=== PATIENT | male | born 1955 | race Caucasian/White ===

== ENCOUNTER 2023-10-30 08:35 | Outpatient (REF) | payer OTHER, SELFPAY ==
[2023-10-30 11:58] LABS: Anion Gap 11 (12-20); Blood Urea Nitrogen 20 mg/dL (9-16); Calcium 9.5 mg/dL (8.4-10.2); Carbon Dioxide 26 mmol/L (22-29); Chloride 103 mmol/L (96-108); Estimated Glomerular Filt Rate > 60; Glucose Random 114 mg/dL (60-115); Potassium 4.3 mmol/L (3.3-5.1); Sodium 136 mmol/L (135-145)
[2023-10-30 12:07] LABS: Cholesterol 207 mg/dL (<200); HDL Cholesterol 48 mg/dL (>40); LDL Cholesterol Calculated 133 mg/dL (<100); Triglycerides 131 mg/dL (<150)
[2023-10-30 12:16] LABS: TSH reflex Free T4 1.38 uIU/mL (0.32-4.0)
== END 2023-10-30 08:36 | disposition home or self-care (01) ==
LOC: HO.HHCL 08:35
PROVIDERS: Visit Provider Internal Medicine
DX: I12.9 Hypertensive chronic kidney disease with stage 1 through stage 4 chronic kidney disease, or unspecified chronic kidney disease (principal); E11.22 Type 2 diabetes mellitus with diabetic chronic kidney disease; N18.30 Chronic kidney disease, stage 3 unspecified; E78.5 Hyperlipidemia, unspecified
CPT/HCPCS: 36415; 80048; 80061; 84443

== ENCOUNTER 2024-02-11 08:53 | Outpatient (REF) | payer OTHER, SELFPAY ==
[2024-02-11 12:02] LABS: Alanine Aminotransferase 17 U/L (0-40); Albumin Level 4.1 g/dL (3.5-5.0); Alkaline Phosphatase 80 U/L (39-117); Aspartate Amino Transferase 21 U/L (5-37); Bilirubin Direct 0.3 mg/dL (0.0-0.5); Cholesterol 130 mg/dL (<200); HDL Cholesterol 42 mg/dL (>40); LDL Cholesterol Calculated 69 mg/dL (<100); Total Protein 7.4 g/dL (6.5-8.0); Triglycerides 95 mg/dL (<150); Vitamin D 25-OH Total 51.3 ng/mL (>30)
[2024-02-11 12:34] LABS: Reflex LDLD? No
== END 2024-02-11 08:54 | disposition home or self-care (01) ==
LOC: HO.HHCL 08:53
PROVIDERS: Visit Provider Internal Medicine
DX: E11.22 Type 2 diabetes mellitus with diabetic chronic kidney disease (principal); N18.30 Chronic kidney disease, stage 3 unspecified; E55.9 Vitamin D deficiency, unspecified
CPT/HCPCS: 36415; 80061; 80076; 82306

== ENCOUNTER 2025-03-18 08:06 | Outpatient (REF) | payer OTHER, SELFPAY ==
--- OUTSIDE RECORDS SUMMARY | 2025-03-18 08:16 | XMS_ITS | Encounter Summary ---
Author Organization [employer] Address [address] [facility] [address] [place] [address] Care Team Providers Care Fixed Income Portfolio Manager Name Role Phone Tracy Costello MD Primary Care Provider + Encounter Details Date Type Department Care Team (Late Contact Info) Description 12/05/2022 Orders Only [facility] MED & PEDS [address] [place], [place] [phone] Pallavi Padgett LPN Social History Tobacco Use Types Packs/Day Years Used Date Smoking Tobacco: Never Smokeless Tobacco: Never Alcohol Use Standard Drinks/Week Comments Never 0 (1 standard drink = 0.6 oz pur e alcohol) Depression Answer Date Recorded Patient Health Questionnaire-2 Score 0 11/21/2022 Sex and Gender Information Value Date Recorded Sex Assigned at Male 10/01/2022 10:31 AM EDT Legal Sex Male 10:31 AM EDT Gender Identity Male 10/01/2022 10:31 AM EDT Sexual Orientation Choose not to disclose 2021 10:31 AM EDT COVID-19 Exposure Response Date Recorded In the last 10 days, have yo u been in contact with someone who was confirmed or suspected to have Coronavirus/COVID-19? No / Unsure 11/21/2022 11:15 AM EST documented as of this encounter Plan of Treatment Upcoming Encounters Date Type Department Care Team (Late st Contact Info) Description 04/13/2025 2:30 PM EDT Medication Management [facility] MEDICINE [address] [place] [address] documented as of this encounter Visit Diagnoses Not on filedocumented in this encounter Care Teams Fixed Income Portfolio Manager Relationship Specialty Start Date End Date Tracy Costello MD [address] [place] [id number] PCP - General Family Medicine 12/02/18 documented as of this encounter
--- OUTSIDE RECORDS SUMMARY | 2025-03-18 08:17 | XMS_ITS | Encounter Summary ---
Author Organization [facility] Address [address] [place] [address] 7[address] [place] [address] Care Team Providers Care Moving Picture Operator Name Role Phone Tracy Costello MD Primary Care Provider + Encounter Details Date Type Department Care Team (Latest Contact Info) Description 07/24/2019 Abstract [facility] CONVERSIONS Dental, Provider, DDS Social History Tobacco Use Types Packs/Day Years Used Date Smoking Tobacco: Never Assessed Sex and Gender Information Value Date Recorded Sex Assigned at Male 10/01/2022 10:31 AM EDT Legal Sex Male 10:31 AM EDT Gender Identity Male 10/01/2022 10:31 AM EDT Sexual Orientation Choose not to disclose 2021 10:31 AM EDT documented as of this encounter Plan of Treatment Upcoming Encounters Date Type Department Care Team (Late st Contact Info) Description 04/13/2025 2:30 PM EDT Medication Management [facility] MEDICINE [address] [place] [address] documented as of this encounter Visit Diagnoses Not on filedocumented in this encounter Care Teams Moving Picture Operator Relationship Specialty Start Date End Date Tracy Costello MD [address] [place] [address] PCP - General Family Medicine 12/02/18 documented as of this encounter
--- OUTSIDE RECORDS SUMMARY | 2025-03-18 08:17 | XMS_ITS | Encounter Summary ---
Author Organization [employer] Address [address] [facility] 7t [place] [address] Care Team Providers Care Tow Picker Name Role Phone Tracy Costello MD Primary Care Provider + Reason for Visit * Reason Onset Date Comments Med Refill 11/28/2023 Encounter Details Date Type Department Care Team ([facility] st Contact Info) Description 11/28/2023 Telephone [facility] MEDICINE [address] [place], [place] [phone] Tracy Costello MD [address] [place], [place] [phone] Med Refill Social History Tobacco Use Types Packs/Day Years Used Date Smoking Tobacco: Never Smokeless Tobacco: Never Alcohol Use Standard Drinks/Week Comments Never 0 (1 standard drink = 0.6 oz pur e alcohol) Housing Stability Answer Date Recorded What is your housing situation today? I have mary pettit 09/20/[address] you li ve. Do you have problems with any of the following? None of the above 09/20/2023 Food Insecurity Answer Date Recorded Within the past 12 months, y ou worried that your food would run out before you got money to buy more: Never True 09/20/2023 Within the past 12 months,th e food you bought just didn't last and you didn't have enough money to get more: Never True Transportation Answer Date Recorded In the past 12 months, has l ack of transportation kept you from medical appts, meetings, work or from getting things needed for daily living? No 09/20/2023 Utilities Answer Date Recorded In the past 12 months, has t he electric, gas, oil or water company threatened to shut off services in your home? No 09/20/2023 Depression Answer Date Recorded Patient Health Questionnaire-2 Score 0 11/21/2022 Sex and Gender Information Value Date Recorded Sex Assigned at Male 10/01/2022 10:31 AM EDT Legal Sex Male 10:31 AM EDT Gender Identity Male 10/01/2022 10:31 AM EDT Sexual Orientation Choose not to disclose 2021 10:31 AM EDT documented as of this encounter Miscellaneous Notes * Telephone Encounter - Pallavi Padgett LPN - 11/28/2023 2:00 PM EST Medication was discontinued on 10/11/23 due to side effects. * Telephone Encounter - Trisha Pagan - 11/28/2023 1:41 PM EST TC from pt requesting medication refill. Medications needing refill : Metformin 1,000 mg Tablet To be sent to: [facility] - [place], [place] - [address] [place] [address] documented in this encounter Plan of Treatment Upcoming Encounters Date Type Department Care Team ([facility] st Contact Info) Description 04/13/2025 2:30 PM EDT Medication Management [facility] MEDICINE [address] [place] [address] documented as of this encounter Goals Goal Patient Goal Type Associated Problems Recent Progress Patient-Stated? Author Blood Pressure < 140/90 Blood Pressure 122/72(2024 2:45 PM EDT) No Alix Yeh Patient will adhere to medication regimen General No Alix Yeh Hemoglobin A1c < 7 Result Component 7(01/29/2025 11:39 AM EST) No Alix Yeh documented as of this encounter Visit Diagnoses Not on filedocumented in this encounter Care Teams Tow Picker Relationship Specialty Start Date End Date Tracy Costello MD [address] [place] [address] PCP - General Family Medicine 12/02/18 documented as of this encounter
--- OUTSIDE RECORDS SUMMARY | 2025-03-18 08:17 | XMS_ITS | Clinical Summary ---
Author Organization [facility] Address [address] [place] [address] Care Team Providers Care Billing Adjudicator Name Role Phone Unavailable Primary Care Provider Unavailabl e Social History Tobacco Use Types Packs/Day Years Used Date Smoking Tobacco: Never Smokeless Tobacco: Never Alcohol Use Standard Drinks/Week Comments Never 0 (1 standard drink = 0.6 oz pur e alcohol) Sex and Gender Information Value Date Recorded Sex Assigned at Not on file Legal Sex Male 9:10 AM EST Gender Identity Not on file Sexual Orientation Not on file Obstetrics History Last Filed Vital Signs Vital Sign Reading Time Taken Comments Blood Pressure - - Pulse - - Temperature - - Respiratory Rate - - Oxygen Saturation - - Inhaled Oxygen Concentration - - Weight 67.1 kg (148 lb) 04/11/2022 10:21 AM EDT Height 160 cm (5' 3 ) 04/11/2022 10:21 AM EDT Body Mass Index 26.22 04/11/2022 10:21 AM EDT Plan of Treatment Health Maintenance Due Date Last Done Comments DTaP,Tdap,and Td Vaccines (1 - Tdap) 1974 Pneumococcal Vaccine: 50+ Ye ars (1 of 1 - PCV) 2005 Zoster Vaccines (1 of 2) 2005 Abdominal Aortic Aneurysm (A AA) Screen 11/04/2022 Cholesterol Screening (Lipid Panel) 11/04/2022 Colorectal Cancer Screening: Colonoscopy 11/04/2022 Depression Screening 11/04/2022 Falls Risk Assessment 11/04/2022 Hepatitis C Screening 11/04/2022 Social Influencers of Health Screening 11/04/2022 COVID-19 Vaccine (2023-2 5 season) 2024 Influenza Vaccine (Season Ended) 2025 RSV Immunization Adult Patie nts (1 - 1-dose 75+ series) 2030 HIB Vaccines Aged Out No longer eligi ble based on patient's age to complete this topic HPV Vaccines Aged Out No longer eligi ble based on patient's age to complete this topic Hepatitis A Vaccines Aged Out No long er eligible based on patient's age to complete this topic Hepatitis B Vaccines Aged Out No long er eligible based on patient's age to complete this topic IPV Vaccines Aged Out No longer eligi ble based on patient's age to complete this topic MMR Vaccines Aged Out No longer eligi ble based on patient's age to complete this topic Meningococcal ACWY Vaccine Aged Out N o longer eligible based on patient's age to complete this topic Meningococcal B Vaccine Aged Out No l onger eligible based on patient's age to complete this topic RSV Immunization Patients Un timi 20 months Aged Out No longer eligible b ased on patient's age to complete this topic Varicella Vaccines Aged Out No longer eligible based on patient's age to complete this topic Advance Directives Documents on File Type Date Recorded Patient Mailing Manager Expl anation Health Care Decision (hx) 05/20/2018 ALYSON PETER DIRECTIVE
--- OUTSIDE RECORDS SUMMARY | 2025-03-18 08:17 | XMS_ITS | Clinical Summary ---
Author Organization [facility] Address [address] [place] [address] Care Team Providers Care Technical Applications Scientist Name Role Phone Unavailable Primary Care Provider Unavailabl e Source Comments PLEASE NOTE, if this patient is a minor, it may be UNLAWFUL to discuss sensitive information that is contained in these records (such as FAMILY PLANNING, MENTAL HEALTH or SUBSTANCE ABUSE) with the minor patient's parent or other person without the patient's specific authorization.[facility] Immunizations Immunization Administration Dates Next Due Moderna COVID-19 Vaccine, re d cap blue label, 12+ Primary Series 03/27/2021,02/14/2021 Social History Tobacco Use Types Packs/Day Years Used Date Smoking Tobacco: Never Assessed Social Connections Answer Date Recorded Social Connections and Isolation 0 02/14/2021 Financial Resource Strain Answer Date R ecorded Financial Resource Strain 0 2020 Stress Answer Date Recorded Stress 0 02/14/2021 Physical Activity Answer Date Recorded Physical Activity 0 02/14/2021 Food Insecurity Answer Date Recorded Food 0 02/14/2021 Transportation Needs Answer Date Record ed Transportation 0 02/14/2021 Housing Stability Answer Date Recorded Housing 0 02/14/2021 Safety and Environment Answer Date Jean rded Safety 0 02/14/2021 Utilities Answer Date Recorded Utilities 0 02/14/2021 Employment Answer Date Recorded Employment 0 02/14/2021 Sex and Gender Information Value Date Recorded Sex Assigned at Not on file Legal Sex Male 7:25 AM PST Gender Identity Not on file Sexual Orientation Not on file Plan of Treatment Health Maintenance Due Date Last Done Comments Diabetes Screening 1955 Hepatitis C Screening 1955 Lipid Screening 1955 Tobacco Screening 1955 Hypertension Screening (#1) 1973 Medicare Annual Wellness Visit 1973 CT Colonography 2000 Colonoscopy 2000 Colorectal Cancer Screening 2000 FIT/gFOBT 2000 Fecal DNA 2000 Flexible Sigmoidoscopy 2000 Imm-Pneumococcal 65+ (1 of 1 - PCV) 2005 Imm-Zoster, Recombinant (1 of 2) 2005 Imm-DTaP/Tdap/Td (1 - Tdap) 04/27/2017 04/26/2017 Abdominal Aortic Aneurysm Screening 2020 Falls Prevention 2020 [id number] ( season) 2024 021, 02/14/2021 Imm-Influenza (#1) 2024 Alcohol and Drug Screen 12/02/2024 Depression Annual Screen 12/02/2024 [place]
--- OUTSIDE RECORDS SUMMARY | 2025-03-18 08:17 | XMS_ITS | Encounter Summary ---
Author Organization [employer] Address [address] [place] [address] [place] [address] Care Team Providers Care Cork Wirer Name Role Phone Tracy Costello MD Primary Care Provider + Reason for Visit * Reason Onset Date Comments DM medications 03/09/2025 Encounter Details Date Type Department Care Team ([facility] st Contact Info) Description 03/09/2025 Telephone [facility] MEDICINE [address] [place], [place] [phone] Lolly Denise, PharmD [address] [place] [address] DM medications Social History Tobacco Use Types Packs/Day Years Used Date Smoking Tobacco: Never Smokeless Tobacco: Never Alcohol Use Standard Drinks/Week Comments Never 0 (1 standard drink = 0.6 oz pur e alcohol) Depression Answer Date Recorded Patient Health Questionnaire-9 Score 2 01/29/2025 Patient Health Questionnaire-9 Score 2 01/29/2025 Last PHQ-9: Questionnaire Data Not on file 0 01/29/2025 Housing Stability Answer Date Recorded What is your housing situation today? I have mary pettit 12/20/[address] you li ve. Do you have problems with any of the following? None of the above 12/20/2023 Food Insecurity Answer Date Recorded Within the past 12 months, y ou worried that your food would run out before you got money to buy more: Never True 12/20/2023 Within the past 12 months,th e food you bought just didn't last and you didn't have enough money to get more: Never True Transportation Answer Date Recorded In the past 12 months, has l ack of transportation kept you from medical appts, meetings, work or from getting things needed for daily living? No 12/20/2023 Utilities Answer Date Recorded In the past 12 months, has t he electric, gas, oil or water company threatened to shut off services in your home? No 12/20/2023 Depression Answer Date Recorded Patient Health Questionnaire-2 Score 2 01/29/2025 Sex and Gender Information Value Date Recorded Sex Assigned at Male 10/01/2022 10:31 AM EDT Legal Sex Male 10:31 AM EDT Gender Identity Male 10/01/2022 10:31 AM EDT Sexual Orientation Choose not to disclose 2021 10:31 AM EDT documented as of this encounter Miscellaneous Notes * Telephone Encounter - Livier cMdonnell RN - 03/10/2025 9:15 AM EDT Noted. RN reviewed chart and per TIM Curry note on 03/03/25: TC placed to patient daughter (Emanuel) [phone] regarding below message. RN informed daughter that patient discontinued his med box on 01/15/25 per pharmacy. Daughter reported pt is legally blind and needs the med box. RN informed daughter a new med box needs referral if pt agreeable. RN spoke to patient that reported he wants to use the med box again. Daughter also reported pt Jardiance was discontinued per pharmacy. TC placed to Pharmacy , RN was notified about the combination drug Glyambi has a co-pay $157. Pharmacy reported they will fill the Jardiance RX and patient is able to pick the medication up in 1 hour. RN informed patient daughter she can pear picker Jardiance and Tradjenta today at the pharmacy. Daughter to F/U PRN RN called [facility] pharmacy and was informed Jardiance and Tradjenta medications have been filled since 03/03/25 awaiting p/u. RN was informed the patient is scheduled to start medboxes on Saturday however they are able to give a couple of pills in a bottle to hold patient over to Saturday. RN called patients daughter Emanuel to remind to p/u medications. Daughter reports she did p/u the medications yesterday. Daughter reports she was at [facility] pharmacy yesterday with Mari who provided daughter with a couple of days of medication in bottles until medboxes start on Saturday. Daughter reports she is not sure what's going on with the [place] pharmacy. I'm getting frustrated. It's like they don't know what they are doing. If I find another pharmacy that does blister packs, I will be switching over . RN apologized to daughter and advised RN would call [facility] pharmacy and explain what she told me to see if RN can clarify. RN confirmed with daughter the patient does indeed have Jardiance and Tradjenta at home. RN returned call to [facility] pharmacy to inform of above information from daughter. Pharmacy apologizes as there was no note written stating the patient received a short supply of medications in bottles until medboxes on Saturday. Pharmacy was able to count the remaining pills and determined the patient was given a 4 day supply of his medications yesterday and medboxes will be initiated on Saturday. Sending to [place] as FYI. documented in this encounter Plan of Treatment Upcoming Encounters Date Type Department Care Team (Late st Contact Info) Description 04/13/2025 2:30 PM EDT Medication Management [facility] MEDICINE [address] [place] [address] documented as of this encounter Goals Goal Patient Goal Type Associated Problems Recent Progress Patient-Stated? Author Blood Pressure < 140/90 Blood Pressure 122/72(2024 2:45 PM EDT) No Ailx Yeh Patient will adhere to medication regimen General No Alix Yeh Hemoglobin A1c < 7 Result Component 7(01/29/2025 11:39 AM EST) No Alix Yeh documented as of this encounter Visit Diagnoses Not on filedocumented in this encounter Additional Health Concerns Assessment Noted Time PHQ-9 Depression Total Score: 2 01/29/20 25 11:29 AM EST documented as of this encounter Care Teams Cork Wirer Relationship Specialty Start Date End Date Tracy Costello MD [address] [place] [address] PCP - General Family Medicine 12/02/18 documented as of this encounter
--- OUTSIDE RECORDS SUMMARY | 2025-03-18 08:17 | XMS_ITS | Clinical Summary ---
Author Organization [employer] Address [address] [facility] [address] [place] [address] Care Team Providers Care Civil Structural Engineer Name Role Phone Tracy Costello MD Primary Care Provider + Allergies Active Allergy Reactions Criticality Noted Date Comments Dog Epithelium (Canis Lupus Familiaris) Itching 07/26/2020 Gramineae Pollens 01/15/2023 Penicillins Hives 03/05/2017 Medications Blood Pressure Monitor kitIndications:El evated blood pressure reading 1 each 2 (two) times a week. Dx elevated blood pressure reading 1 kit 022 Active albuterol (2.5 MG/3ML) 0.083% nebulizer solution INHALE 3ML BY NEBULIZATION ROUTE THREE TIMES EVERY DAY 75 mL 1 023 Active Combigan 0.2-0.5 % ophthalmic solution APPLY 1 DROP IN EACH EYE TWICE DAILY 023 Active latanoprost (Xalatan) 0.005 % ophthalmic solution PLACE 1 DROP IN EACH EYE EVERY NIGHT 023 Active Blood Glucose Monitoring Suppl (Blood Glucose Monitor System) w/Device kit Check blood sugar three times daily as directed 1 kit 023 Active albuterol 108 (90 Base) MCG/ACT inhaler Inhale 2 puffs every 6 (six) hours if needed for wheezing or shortness of breath. 18 g 5 024 Active Alcohol Swabs (Alcohol Prep) 70 % pads USE THREE TIMES DAILY DIRECTED 100 each 3 024 Active glucose blood (OneTouch Verio) test strip USE TO TEST BLOOD SUGAR THREE TIMES DAILY DIRECTED 100 strip 3 04/02/2 024 Active Lancets (OneTouch Delica Plus [id number]) [facility] USE TO TEST BLOOD SUGAR THREE TIMES DAILY DIRECTED 100 each Active empagliflozin (Jardiance) 25 MGIndications:Typ e 2 diabetes mellitus with hyperglycemia, without long-term current use of insulin ([facility]) Take 1 tablet (25 mg) by mouth Once per day. 30 tablet 11 024 2024 Active fluticasone (Flonase) 50 MCG/ACT nasal spray USE 1-2 SPRAYS IN EACH NOSTRIL IN THE MORNING SHAKE GENTLY 16 g 2 Active fluticasone furoate (Arnuity Ellipta) 100 MCG/ACT inhaler INHALE 1 PUFF BY MOUTH EVERY MORNING, RINSE MOUTH AFTER USING. 30 each 024 2024 Active cholecalciferol VITAMIN D (Vitamin D-3) 50 MCG (2000 UT) tabletIndications :Degeneration of lumbar intervertebral disc TAKE 1 TABLET BY MOUTH EVERY MORNING 90 tablet 3 024 Active folic acid (Folvite) 1 MG tabletIndications :Vitamin D deficiency TAKE 1 TABLET BY MOUTH EVERY MORNING 90 tablet 3 024 Active tamsulosin (Flomax) 0.4 MG 24 hr capsule TAKE 1 CAPSULE BY MOUTH EVERY MORNING (for prostate) 90 capsule 1 Active atorvastatin (Lipitor) 40 MG tabletIndications :Hyperlipidemia, unspecified hyperlipidemia type TAKE 1 TABLET BY MOUTH AT BEDTIME cholesterol 30 tablet 11 Active lisinopril 10 MG tabletIndications :Primary hypertension TAKE 1 TABLET BY MOUTH EVERY MORNING BLOOD PRESSURE 30 tablet 11 024 Active aspirin (Aspirin Low Dose) 81 MG chewable tabletIndications :Type 2 diabetes mellitus with stage 3 chronic kidney disease, without long-term current use of insulin, unspecified whether stage 3a or 3b CKD ([facility]) CHEW 1 TABLET BY MOUTH EVERY MORNING (FOR THE HEART) 90 tablet 3 Active empagliflozin-liam agliptin (Glyxambi) 25-5 MG Take 1 tablet by mouth Once per day. 30 tablet 11 025 2025 Active polyethylene glycol, PEG, 3350 (MiraLax) 17 GM/SCOOP powder Take 17 g by mouth Once per day. 527 g 2 025 2024 Active linaGLIPtin (Tradjenta) 5 MG tabletIndications :Type 2 diabetes mellitus with stage 3 chronic kidney disease, without long-term current use of insulin, unspecified whether stage 3a or 3b CKD (CMS/HCC) Take 1 tablet (5 mg) by mouth Once per day. 90 tablet 3 025 2025 Active docusate sodium (Colace) 100 MG capsule Take 1 capsule by mouth if needed each day for constipation. Active omeprazole (PriLOSEC) [address] capsule Take 1 capsule by mouth before breakfast. Do not crush or chew. Active ketorolac (Acular) 0.5 % ophthalmic solution Administer 1 drop into the right eye 4 times daily. Active Tradjenta 5 MG tabletIndications :Type 2 diabetes mellitus with stage 3 chronic kidney disease, without long-term current use of insulin, unspecified whether stage 3a or 3b CKD (CMS/HCC) TAKE 1 TABLET BY MOUTH EVERY MORNING (for diabetes) 30 tablet 025 2024 Discontinued(R eorder (will not trigger notification to Pharmacy)) Active Problems Problem Noted Date Diagnosed Date Slow transit constipation 11/27/2024 Assessment & Plan (01/29/2025 1:58 PM EST): Start Miralax FU with GI for colonoscopy. Assessment & Plan (11/27/2024 1:23 PM EST): Resolved with Colace. Continue Colace, information regarding GI referral for colonoscopy given to pt. H/O balanitis 11/27/2024 Dysuria 11/27/2024 Assessment & Plan (11/27/2024 1:25 PM EST): Advised to come to walk in clinic PRN symptoms and bring med boxes, it may be related to Jardiance or vs. Mariana balanitis. Acute exacerbation of chronic low back pain 08/03 Assessment & Plan (08/26/2024 9:49 AM EDT): - status post fall a few months ago (see previous note) - will order a PT referral again due to residual pain Primary open angle glaucoma (POAG) of both eyes 08/26/2024 Assessment & Plan (08/26/2024 1:49 PM EDT): Seen by Ophthalmology, previously by Dr Ndiaye, lost for fu. We'll obtain OV notes from most recent ophthalmology visit, routine optometry evaluation on 04/09 appreciated. Advised to be compliant with eye drops, caution with accidents due to decreased vision. Fall at home 05/26/2024 Assessment & Plan (05/26/2024 9:30 AM EDT): - no head trauma - refer to PT for lower back pain - prescribe anti-slip mat for the bathroom - pt has a shower chair and grab bars in the shower Encounter for colorectal cancer screening 2022 Assessment & Plan (05/26/2024 9:29 AM EDT): - refer for colonoscopy Vitamin D deficiency 10/11/2023 Assessment & Plan (05/26/2024 9:29 AM EDT): - Vitamin D is at goal - continue low dose Vitamin D daily Assessment & Plan (12/20/2023 2:38 PM EST): On vit D daily. Check Levels prior to next appt. Assessment & Plan (10/11/2023 11:45 AM EST): Noncompliant with Vit-D supplementation Restart Vit-D supplementation daily and recheck levels in 3 months Pt decline Flu IZ Encounter for screening colonoscopy 04/16/2023 Allergic sinusitis 04/16/2023 Overview (04/16/2023): Continue Claritin and will add Flonase Assessment & Plan (04/16/2023 2:27 PM EDT): Continue Claritin and will add Flonase Asthma in adult 04/16/2023 Overview (04/16/2023): Add Flovent. -Continue albuterol prn -No indication for prednisone. Assessment & Plan (04/16/2023 2:26 PM EDT): Add Flovent. -Continue albuterol prn -No indication for prednisone. High serum amylase 01/06/2023 Assessment & Plan (01/06/2023 10:38 PM EST): ED visit on 10/24/22 reviewed. Patient denies ETOH use at that time. Repeat Amylase and lipase and fu at next appt. Will DC Tradjenta if elevated,patient aware to get BW done PETROS. Counseled to avoid ETOH use Primary hypertension 12/25/2022 Assessment & Plan (11/27/2024 1:22 PM EST): Controlled. Compliant w/meds. Continue lisinopril same dose. Counseled re low salt diet/increase moderate physical activity. Check home BP BIW and prn CP/GUERRA/GABRIEL. Non smoking patient. FU with me in 6 months. Assessment & Plan (12/20/2023 2:34 PM EST): Better controlled, continue lisinopril 10 mg in med boxes. Counseled re low salt diet/increase moderate physical activity. Check home BP BIW and prn CP/GUERRA/GABRIEL Non smoking patient. Assessment & Plan (10/11/2023 11:44 AM EST): Uncontrolled, increase lisinopril to 10mg /daily Counseled re low salt diet/increase moderate physical activity. Check home BP BIW and prn CP/GUERRA/GABRIEL Non smoking patient. Assessment & Plan (04/16/2023 2:25 PM EDT): At goal with cristiano ryan. Assessment & Plan (12/25/2022 2:05 PM EST): New Onset. Start lisinopril 5mg and FU with me in 3-4 weeks with labs Counseled re low salt diet/increase moderate physical activity. Check home BP BIW and prn CP/GUERRA/GABRIEL Non smoking patient. Cervical radiculopathy 11/21/2022 Erectile dysfunction due to arterial insufficien cy 11/21/2022 Hyperlipidemia associated wi th type 2 diabetes mellitus ([facility]/HCC) 11/21/2022 Assessment & Plan (01/29/2025 1:56 PM EST): Check Lipid profile Continue Atorvastatin 40 mg FU on next appointment Assessment & Plan (05/26/2024 9:26 AM EDT): - LDL is at goal, continue Atorvastatin - recommended moderate amount of exercise and increase consumption of fruit, vegetables, fish and high fiber foods. Should decrease consumption of highly saturated fats or trans fats Assessment & Plan (10/11/2023 11:42 AM EST): Uncontrolled, Pt not taking Atorvastatin Reminded him to take Atorvastatin daily, he agreed to start med boxes FU lipids in 3 months Degeneration of lumbar intervertebral disc 10/30 Assessment & Plan (11/27/2024 1:26 PM EST): Partially improved, S/P PT. Advised to come to acupuncture clinic. Take Tylenol PRN. Assessment & Plan (08/26/2024 1:43 PM EDT): Exacerbated after recent fall, patient has declined epidural inj recently Refer to PT again, patient advised that appt should be made within 30d of referral, so if they don't receive anything in the mail by the end of next week or via [employer], they should come to inquire about referral. I explained that it is most likely a PT provider requirement as most muscle skeletal conditions tend to improve with time and may need re evaluation after 30d. Patient understood and will keep an eye on the referral. Assessment & Plan (05/26/2024 9:18 AM EDT): - lower back pain worsened after recent fall at home - continue Tylenol PRN - refer to PT Assessment & Plan (10/11/2023 11:40 AM EST): Controlled, Pt has spinal stenosis Take Tylenol and Tizanidine PRN Spinal stenosis of lumbar region 04/08/2019 Assessment & Plan (01/06/2023 7:49 PM EST): Currently with no s/s claudication. Recommend to continue gentle exercise as tolerated. Continue gabapentin bid, caution with driving or performing activities that require vigilance. FU pain clinic prn. Protrusion of lumbar intervertebral disc 019 Abnormal gait 03/12/2019 Chronic thoracic back pain 03/12/2019 Long toenail 01/12/2019 Assessment & Plan (01/29/2025 1:59 PM EST): Refer to Podiatry Assessment & Plan (08/26/2024 9:49 AM EDT): - will refer pt to podiatry again for toenail trimming Assessment & Plan (12/20/2023 2:35 PM EST): Refer to podiatry for toenail trimming Injury of musculoskeletal system 01/28/2018 Cyst of epididymis 09/13/2017 Hydrocele in adult 09/13/2017 Lesion of soft tissue of lower leg and ankle 09/2017 Benign prostatic hyperplasia with lower urinary tract symptoms 07/23/2017 Assessment & Plan (10/11/2023 11:40 AM EST): Pt is asymptomatic at this time, continue Flomax daily He will reschedule appointment with Pure hypercholesterolemia 04/16/2017 Assessment & Plan (12/20/2023 2:39 PM EST): On atorvastatin, check lipids and LFts prior to next appt. Mild intermittent asthma 03/05/2017 Type 2 diabetes mellitus wit h stage 3 chronic kidney disease, without long-term current use of insulin, unspecified whether stage 3a or 3b CKD 03/05/2017 Assessment & Plan (01/29/2025 1:55 PM EST): Controlled. No change on medications. I will prescribe Glyxambi 25-5 (combo) to improve medication compliance and minimize the number of pills. Counseled re more frequent low calorie/carb meals. Check fgstk twice daily Encouraged physical activity as tolerated. Ophthalmology evaluation UTD, he has DM retinopathy. Refer to marking machine operator for toenail treatment. He declined COVID and Influenza immunizations today. Order labs prior to next appointment. FU in 3 months. Assessment & Plan (11/27/2024 1:19 PM EST): Controlled. A1c is at goal. Continue on Tradjenta 5 mg and Jardiance 25 mg Counseled re more frequent low calorie/carb meals. Check fgstk up to twice daily Encouraged physical activity as tolerated. FU in 3 months We will FU on potential side effects of Jardiance. He declined Covid and Influenza immunizations today. Assessment & Plan (08/26/2024 10:10 AM EDT): Controlled. A1c is at goal. Continue on Tradjenta 5 mg and Jardiance 25 mg Counseled re more frequent low calorie/carb meals. Check fgstk up to twice daily Encouraged physical activity as tolerated. FU in 3 months Pt declined influenza and PCV IZ today. Advised to have them both and Covid vacccine at the nearest pharmay Assessment & Plan (05/26/2024 9:28 AM EDT): - A1c is improving, fairly good - Increase Jaurdiace to 25 mg and continue Tradjenta 5 mg - Counseled re more frequent low calorie/carb meals. - Check fgstk once daily - Encouraged physical activity as tolerated. - FU in 3 months. Assessment & Plan (12/20/2023 2:44 PM EST): It seems to be better controlled since started on med boxes. Continue Tradjenta only (Actos is being held due to non compliance) and fu in 2m. Counseled re more frequent low calorie/carb meals. Check fgstk 2x daily Encouraged physical activity as tolerated. Add ASA 81mg/d for CV protection. Declined Influenza and Covid vax. Assessment & Plan (10/11/2023 11:43 AM EST): Better controlled, A1c not at goal DC metformin due to intolerance and counseled him to take Actos and Tradjenta daily Counseled re more frequent low calorie/carb meals. Check fgstk once daily Encouraged physical activity as tolerated. Fu A1c 3 months Assessment & Plan (01/06/2023 10:33 PM EST): Uncontrolled. A1c is not at goal but improved from previous one 6m ago. He isn't taking meds regularly, Rx pick pulling machine tender profile reviewed. Counseled re compliance with FU and meds. Continue Metformin + Tradjenta + Actos Fu in 6w Traumatic onycholysis 03/05/2017 Resolved Problems Problem Noted Date Diagnosed Date Resolved Date Contusion of right chest wall 01/06/2023 08/26/2024 Suspected glaucoma of both eyes 10/30/2021 08/26/2024 Concussion and edema of cervical spinal cord 9 10/11/2023 Urinary tract infectious disease 12/19/2018 10/11/2023 Elevated blood pressure reading 10/16/2018 10/11/2023 Assessment & Plan (01/06/2023 7:59 PM EST): Uncontrolled, likely related to pain. Take tylenol prn pain. Continue lisnopril and fu BP w RN in 3w Check BP at home BIW. Pneumonia of left lung due t o infectious organism 12/17/2017 10/11/2023 Epigastric pain 11/22/2017 10/11/2023 Scrotal mass 09/10/2017 10/11/2023 Visual impairment 03/05/2017 08/26/2024 Encounters Date Type Department Care Team Description 03/09/2025 Telephone [facility] [address] [place] [address] Lolly Denise, ClarkD DM medications 03/09/2025 Travel 03/01/2025 Refill [facility] [address] [place] [address] Tracy Costello MD Type 2 diabetes mellitus with stage 3 chronic kidney disease, without long-term current use of insulin, unspecified whether stage 3a or 3b CKD ([facility]) 02/24/2025 Telephone [facility] [address] [place] [address] Tracy Costello MD May recall 01/29/2025 11:30 AM EST Office Visit [facility] [address] [place] [address] Tracy Costello MD Type 2 diabetes mellitus with hyperglycemia, without long-term current use of insulin (CMS/HCC) (Primary Dx); Hyperlipidemia associated with type 2 diabetes mellitus (CMS/HCC) (CMS/HCC); Slow transit constipation; Long toenail; Type 2 diabetes mellitus with stage 3 chronic kidney disease, without long-term current use of insulin, unspecified whether stage 3a or 3b CKD (CMS/HCC) 01/29/2025 Travel 01/26/2025 Telephone [facility] [address] [place] [address] Tracy Costello MD Chart prep from Last 3 Months Immunizations Name Administration Dates Next Due Hep B, adult 05/05/2024(Deferred: Patient Ref used) Influenza injectable quadriv alent preservative free 11/21/2022 Pfizer Covid-19 Vaccine 12+ 05/05/2024(Deferred: Patient Refused) Pneumococcal Conjugate PCV 13 03/21/2022 Pneumococcal Conjugate PCV 20 05/05/2024(Deferre d: Patient Refused) RSV Bivalent 05/05/2024(Deferred: Patient Ref used) TD (adult), 2 Lf tetanus tox oid, preservative free, adsorbed 04/26/2017 Zoster, Recombinant 05/05/2024(Deferred: Patient Refused) Social History Tobacco Use Types Packs/Day Years Used Date Smoking Tobacco: Never Smokeless Tobacco: Never Tobacco Cessation:Counseling Given: Not Answered Alcohol Use Standard Drinks/Week Comments Never 0 [...] the past 12 months, has t he [employer], gas, oil or water company threatened to shut off services in your home? No 12/20/2023 Depression Answer Date Recorded Patient Health Questionnaire-2 Score 2 01/29/2025 Sex and Gender Information Value Date Recorded Sex Assigned at Male 10/01/2022 10:31 AM EDT Legal Sex Male 10:31 AM EDT Gender Identity Male 10/01/2022 10:31 AM EDT Sexual Orientation Choose not to disclose 2021 10:31 AM EDT Last Filed Vital Signs Vital Sign Reading Time Taken Comments Blood Pressure 122/72 03/09/2025 2:45 PM EDT Pulse 58 03/09/2025 2:45 PM EDT Temperature 36.3 ??C (97.4 ??F) 01/29/2025 11:[address] Respiratory Rate 16 01/29/2025 11:24 AM EST Oxygen Saturation 99% 11/27/2024 11:14 AM EST Inhaled Oxygen Concentration - - Weight 63.1 kg (139 lb 2 oz) 01/29/2025 11:24 AM EST Height 160 cm (5' 3 ) 01/29/2025 11:24 AM EST Body Mass Index 24.64 01/29/2025 11:24 AM EST Plan of Treatment Upcoming Encounters Date Type Department Care Team (Late st Contact Info) Description 04/13/2025 2:30 PM EDT Medication Management [facility] [address] [place] [address], [place] [address] Health Maintenance Due Date Last Done Comments CT Colonography 1955 Colonoscopy 1955 Colorectal Cancer Screening 1955 Dental Oral Exam 1955 Dental Prophylaxis 1955 Dental X-Ray: Bitewings 1955 Dental X-Ray: Full Mouth 1955 FIT DNA/Cologuard 1955 FIT 1955 FOBT 1955 Sigmoidoscopy 1955 Alcohol/Substance Use Screening 1967 Hepatitis C Screening 1973 Zoster Vaccines (1 of 2) 2005 RSV Patients and Patients Aged 60 years or older (1 - Risk 60-74 years 1-dose series) 2015 DTaP/Tdap/Td Vaccines (1 - Tdap) 04/27/2017 04/26/2017 Pneumococcal Vaccine: 50+ Years (2 of 2 - PPSV23) 05/16/2022 03/21/2022 COVID-19 Vaccine (4 - season) 2024 11/02/2021, 03/27/2021, 02/14/2021 Influenza Vaccine (#1) 2024 11/21/2022 SDOH Screening 12/20/2024 12/20/2023 Lipid Panel 02/10/2025 02/11/2024, 10/03, 12/26/2022, Additional history exists Diabetes: Hemoglobin A1C 04/28/2025 025, 11/27/2024, 08/26/2024, Additional history exists Depression Screening 01/29/2026 01/29/2025, 01/29/20 Diabetes: Foot Exam 01/29/2026 01/29/2025, 01/29/2025, 01/29/2025, Additional history exists Tobacco Screening 01/29/2026 01/29/2025 Eye Exam 03/20/2026 03/20/2024, 03/02, 03/20/2024, Additional history exists HIB Vaccines Aged Out No longer eligi [...] patient's age to complete this topic Meningococcal Vaccine Aged Out No jorge alba eligible based on patient's age to complete this topic RSV under 20 months Aged Out No longe r eligible based on patient's age to complete this topic Rotavirus Vaccines Aged Out No longer eligible based on patient's age to complete this topic Goals Goal Patient Goal Type Associated Problems Recent Progress Patient-Stated? Author Blood Pressure < 140/90 Blood Pressure 122/72(2024 2:45 PM EDT) No Alix Yeh Patient will adhere to medication regimen General No Alix Yeh Hemoglobin A1c < 7 Result Component 7(01/29/2025 11:39 AM EST) No Alix Yeh Procedures Procedure Name Priority Date/Time Associated Diagnosis Comments POCT GLYCATED HEMOGLOBIN, TOTAL Routine 01/29/2025 11:39 AM EST Type 2 diabetes mellitus with hyperglycemia, without long-term current use of insulin ([facility]) POCT GLUCOSE Routine 01/29/2025 11:36 AM EST Type 2 diabetes mellitus with hyperglycemia, without long-term current use of insulin ([facility]) LIPID PANEL WITH REFLEX TO DIRECT LDL Routine 02/11/2024 8:54 AM EDT Type 2 diabetes mellitus with stage 3 chronic kidney disease, without long-term current use of insulin, unspecified whether stage 3a or 3b CKD ([facility]) from Last 3 Months or Most Recently Relevant to Health Maintenance Results * (ABNORMAL) POCT HGB A1C (01/29/2025 11:39 AM EST) Hemoglobin A1C 7.0(A) 4.0 - 6.0 % QC Media Lot # [id number] Lot# Expiration Date 42 Blood 01/29/2025 11:3 9 AM EST Tracy Costello MD POINT OF CARE TEST ENTER /EDIT ORDERABLES Final Result * POCT Glucose (01/29/2025 11:36 AM EST) Glucose Blood, POC 154 60 - 200 mg/dL QC Media Lot # [id number] Lot# Expiration Date [id number] Blood Capillary blood specimen / Unknown 01/29/2025 11:36 AM EST Tracy Costello MD POINT OF CARE TEST ENTER /EDIT ORDERABLES Final Result * Lipid Panel with Reflex to Direct LDL (02/11/2024 8:54 AM EDT) Triglycerides 95 <150 mg/dL [facility] Comment:Desirable Triglyceri de: less than 150 mg/dLBorderline High Triglyceride 150-199 mg/dLHigh Triglyceride: 200-499 mg/dLVery High Triglyceride: greater than or equal to 5OO mg/dL Cholesterol 130 <200 mg/dL [facility] Comment:Desirable Cholestero l: less than 200 mg/dLBorderline High Cholesterol: 200-239 mg/dLHigh Cholesterol: greater than 239 mg/dL LDL Cholesterol Calculated 69 <100 mg/dL [facility] Comment:Desirable LDL: less than 100 mg/dLNear Optimal/Above Optimal LDL: 110- 129 mg/dLBorderline High LDL: 130-159 mg/dLHigh LDL: 160-189 mg/dLVery High LDL: greater than or equal to 190 mg/dL HDL Cholesterol 42 >40 mg/dL [facility] Comment:Desirable HDL: great er than 40 mg/dL Note: This HDL assay may give artificially low results in patients with liver disease. Blood 02/11/2024 8:54 AM EDT 02/11/2024 11:18 AM EDT us Tracy Costello MD LAB BLOOD ORDERABLES Fin al Result [facility] [address] [place] [phone] from Last 3 Months or Most Recently Relevant to Health Maintenance Insurance [employer] MEDICARE REPLACEMENT Advance Directives Documents on File Type Date Recorded Patient Fbi Investigator Expl anation Advance Directives and Living Will 08/31/2024 4:15 PM Health Care Proxy Care Teams Civil Structural Engineer Relationship Specialty Start Date End Date Tracy Costello MD [address] [place] [phone] PCP - General Family Medicine 12/02/18
[2025-03-18 12:29] LABS: Alanine Aminotransferase 26 U/L (0-40); Albumin Level 4.2 g/dL (3.5-5.0); Anion Gap 11 (12-20); Aspartate Amino Transferase 29 U/L (5-37); Bilirubin Total 0.7 mg/dL (0.0-1.0); Blood Urea Nitrogen 22 mg/dL (9-16); Calcium 9.2 mg/dL (8.4-10.2); Carbon Dioxide 26 mmol/L (22-29); Chloride 106 mmol/L (96-108); Cholesterol 175 mg/dL (<200); Estimated Glomerular Filt Rate > 60; Glucose Random 141 mg/dL (60-115); HDL Cholesterol 44 mg/dL (>40); LDL Cholesterol Calculated 99 mg/dL (<100); Sodium 139 mmol/L (135-145); Total Protein 7.6 g/dL (6.5-8.0); Triglycerides 160 mg/dL (<150)
[2025-03-18 12:33] LABS: Alkaline Phosphatase 84 U/L (39-117)
[2025-03-18 12:59] LABS: Reflex LDLD? No
== END 2025-03-18 08:07 | disposition home or self-care (01) ==
LOC: HO.HHCL 08:06
PROVIDERS: Visit Provider Internal Medicine
DX: E11.65 Type 2 diabetes mellitus with hyperglycemia (principal)
CPT/HCPCS: 36415; 80053; 80061; 82043; 82570